=== PATIENT | male | born 1955 | race Two or more races ===

== ENCOUNTER → 2023-01-06 | Outpatient (CLI) | payer OTHER ==
[~2023-01-06] MED LIST: ASPI81CH43 PO; MET25T PO; TICA90TA PO
[2023-01-06 12:25] LABS: Urine Bacteria NONE SEEN /hpf (None Seen); Urine Blood Negative /uL (Negative); Urine Specific Gravity 1.018 (1.001-1.035); Urine WBC <1 /hpf (0 - 3)
[2023-01-06 12:52] LABS: T3 Total 1.02 ng/mL (0.60-1.81)
[2023-01-06 13:02] LABS: Prostate Specific Antigen 6.07 ng/mL (0.0-4.0)
[2023-01-06 16:31] LABS: Chloride 105 mmol/L (98-107); Potassium 4.1 mmol/L (3.5-5.1); Sodium 136 mmol/L (136-145)
[2023-01-06 16:32] LABS: Alanine Aminotransferase 47 U/L (16-61); Albumin 3.5 g/dL (3.4-5.0); Alkaline Phosphatase 60 U/L (45-117); Anion Gap 4 (5-15); Aspartate Aminotransferase 25 U/L (15-37); BUN/Creatinine Ratio 11.4 (10.0-20.0); Bilirubin, Total 0.6 mg/dL (0.2-1.0); Blood Urea Nitrogen 13 mg/dL (7-18); Calcium 8.8 mg/dL (8.5-10.1); Carbon Dioxide 27 mmol/L (21-32); GFR African American 82 mL/min; GFR Non-African American 68 mL/min; Glucose 116 mg/dL (74-106); Total Protein 7.5 g/dL (6.4-8.2)
[2023-01-06 19:10] LABS: Cholesterol 232 mg/dL (< 200); Triglycerides 258 mg/dL (< 150)
[2023-01-06 19:11] LABS: HDL Cholesterol 50 mg/dL (40-59); LDL Cholesterol 148 mg/dL (< 100)
== END | disposition home or self-care (01) ==
LOC: LAB 11:13
PROVIDERS: ATTEND Internal Medicine
DX: Z12.5 Encounter for screening for malignant neoplasm of prostate (principal); I25.10 Atherosclerotic heart disease of native coronary artery without angina pectoris; E66.01 Morbid (severe) obesity due to excess calories; R35.1 Nocturia; R53.83 Other fatigue
CPT/HCPCS: 36415; 80053; 80061; 81001; 82306; 83036; 84153; 84154; 84402; 84403; 84436; 84443; 84480; 87086

== ENCOUNTER → 2023-01-21 | Outpatient (CLI) | payer OTHER | END | disposition home or self-care (01) | LOC: LAB 11:58 | PROVIDERS: ATTEND Internal Medicine | DX: Z12.5 Encounter for screening for malignant neoplasm of prostate (principal); I25.10 Atherosclerotic heart disease of native coronary artery without angina pectoris; R35.1 Nocturia; E66.01 Morbid (severe) obesity due to excess calories | CPT/HCPCS: 84154; 84402; 84403; 84436 ==